=== PATIENT | female | born 1950 | race Two or more races ===

== ENCOUNTER 2016-08-21 14:45 | Observation (INO) | payer MEDICARE, MEDICAID ==
[2016-08-21] MEDS: NS 0.9% 1000 ML* 2,000 ML IV ONE ×2 (15:19→16:51)
[2016-08-21 15:20] LABS: Hematocrit 38 % (35-47); Hemoglobin 12.6 g/dl (12.0-16.0); Mean Corpuscular HGB Conc 33 g/dl (31-36); Mean Corpuscular Hemoglobin 32 pg (27-31); Mean Corpuscular Volume 96 fL (80-97); Mean Platelet Volume 9 um3 (7.4-10.4); Red Blood Count 3.99 10^6/ul (4.0-5.4); Red Cell Distribution Width 14 % (10.5-15); White Blood Count 7.4 10^3/ul (3.5-10.8)
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
[2016-08-21 15:37] LABS: Albumin 4.3 g/dL (3.2-5.2); BUN/Creatinine Ratio 12.6 (8-20); Calcium 9.8 mg/dL (8.6-10.3); Globulin 3.6 g/dL (2-4); HDL Cholesterol 49.6 mg/dL; Potassium 3.9 mmol/L (3.5-5.0); Total Bilirubin 0.6 mg/dL (0.2-1.0); Total Protein 7.9 g/dL (6.4-8.9)
[2016-08-21] MEDS ORDERED: Iodixanol* (CONTRAST) 320 MG/ML 100 ML SDV IV ONE (15:52)
--- NOTE | 2016-08-21 17:17 | RAD ---
INDICATION: Left-sided weakness. CVA. COMPARISON: None TECHNIQUE: Noncontrast axial source images were acquired from the skull base to the vertex. FINDINGS: Ventricles/sulci: The ventricles and cisterns are normal in size and configuration for age. Brain parenchyma: There is no focal parenchymal finding, evidence of intracranial mass, or intracranial mass effect. Intracranial hemorrhage:None. Extra-axial spaces: There are no abnormal extra axial fluid collections or evidence of extra-axial mass. Calvarium: There is no calvarial fracture or other calvarial abnormality. Scalp: There is no evidence of scalp or extracalvarial soft tissue abnormality. Paranasal sinuses/mastoid: The paranasal sinuses and mastoid air cells are clear. Other: None. IMPRESSION: NEGATIVE EXAMINATION
--- NOTE | 2016-08-21 17:31 | RAD ---
INDICATION: Carotid stenosis COMPARISON: None TECHNIQUE: Axial source images were acquired with coronal and sagittal reconstructions. CT angiographic technique was utilized with injection of 80 mL Visipaque 320. FINDINGS: Aortic arch: There are no CT angiogram abnormalities of the arch or the great vessels arising from the arch. Right carotid: The internal carotid artery, carotid bifurcation, extracranial portions of the internal carotid artery, carotid artery at the skull base, carotid siphon, and carotid termination appear normal. Left carotid:The internal carotid artery, carotid bifurcation, extracranial portions of the internal carotid artery, carotid artery at the skull base, carotid siphon, and carotid termination appear normal. Right middle and anterior cerebral arteries: There are no CT angiographic abnormalities of the middle or anterior cerebral arteries. Left middle and anterior cerebral arteries: There are no CT angiographic abnormalities of the middle or anterior cerebral arteries Right vertebral: The CT angiographic appearance of the vertebral artery is normal. Left vertebral: The CT angiographic appearance of the vertebral artery is normal. Basilar artery: The basilar artery and basilar tip appear normal. Posterior cerebral arteries: The distal distribution of the right and left posterior cerebral arteries is normal. [place]: The CT angiographic appearance of the [place] is normal. There is an anatomic variant with aplasia of the posterior to indicating arteries bilaterally Source images show no evidence of mass or adenopathy within the neck. There are moderate osteophyte changes between C3 and C6 There are no focal parenchymal abnormalities or abnormal areas of enhancement. IMPRESSION: NO SIGNIFICANT CT ANGIOGRAPHIC ABNORMALITIES. NO EVIDENCE OF RIGHT OCCLUSION, STENOSIS, OR ANEURYSM., CPT II Codes: 3100F RS
[2016-08-21] MEDS ORDERED: Nicotine Inhaler* 10 MG AMP INH PRN (18:57)
[2016-08-21] MEDS ORDERED: NS 0.9% 1000 ML* 1,000 ML IV SCH (19:00)
--- NOTE | 2016-08-21 19:21 | RAD ---
INDICATION: Left-sided weakness for 2 weeks COMPARISON: CT brain same date TECHNIQUE: sagittal T1 FLAIR, axial diffusion, axial T1 FLAIR, axial T2, axial T2 FLAIR, and SWI images were acquired. FINDINGS: Craniocervical junction: The craniocervical junction appears normal. Ventricles/sulci: The ventricles and cisterns are normal in size and configuration for age. Brain parenchyma: There are scant T2-weighted hyperintensities in the periventricular white matter. There are no other focal parenchymal abnormalities. There is no evidence of intracranial mass or mass effect. The diffusion weighted images show no evidence of acute ischemia. Intracranial hemorrhage: There is no intracranial hemorrhage. Extra-axial spaces: There are no extra-axial fluid collections or masses. Orbits: There are no MR abnormalities of the orbital structures. Paranasal sinuses/mastoid: The paranasal sinuses are clear. The mastoid air cells are well aerated.. Vascular: No abnormalities are seen. Other: None IMPRESSION: SCANT T2-WEIGHTED HYPERINTENSITIES SUGGESTIVE OF MILD CHRONIC MICROVASCULAR ISCHEMIC CHANGES. NO ACUTE FINDINGS
[2016-08-21] MEDS ORDERED: traMADol TAB* 50 MG PO PRN (19:40)
[2016-08-21] MEDS ORDERED: Aspirin EC TAB* 325 MG PO ONE (20:06)
[2016-08-21] MEDS ORDERED: Mouth Piece, Nicotine* 1 EACH CARTRIDGE INH ONE (20:45)
[2016-08-21] MEDS ORDERED: Amitriptyline TAB* 50 MG PO SCH (21:00)
[2016-08-21] MEDS: Heparin VIAL(*) 5000 UNITS/ML VIAL (FIVE THOUSAND) SUBCUT SCH (22:27)
--- NOTE | 2016-08-21 22:47 | HP ---
HISTORY AND PHYSICAL: DATE OF ADMISSION: 08/21/16 PRIMARY CARE PROVIDER: Dr. Tha Lynch. ATTENDING PHYSICIAN: Luke Smith MD *(dictated by Renetta Zuleta NP ). CHIEF COMPLAINT: Left-sided weakness for 2 weeks. HISTORY OF PRESENT ILLNESS: Ms. Connolly is a 66-year-old female with a past medical history significant for hyperlipidemia, orthostatic hypotension, shingles and fibromyalgia who presented to the emergency room today with complaints of 2 weeks of left-sided weakness. The patient reports that over the last 2 weeks, she has noticed weakness in her left arm and leg. The patient states that she woke up one morning and was unable to walk. She is right hand dominant. She denies any difficulty swallowing, slurred speech or changes in her facial symmetry. The patient has been able to walk around her house with the use of a cane. She states prior to 2 weeks ago, she was not using a cane. The patient also reports frequent falls over the last 2 weeks, but denies any head injuries. The patient denies any fever, chills, chest discomfort, shortness of breath, nausea, vomiting, urinary symptoms, loss of bowel or bladder, numbness or tingling, back pain or neck pain. The patient does report dizziness that started 2 weeks ago when her left-sided weakness started. She states that she has had dizziness in the past and takes meclizine for this, but she feels that this dizziness is different. The patient saw her primary care provider, who recommended that she present to the emergency room for further evaluation. While in the emergency room, the patient had labs that were significant for an elevated creatinine of 1.27. The patient had a lipid panel that showed elevated cholesterol and an LDL, although these were not done fasting. The patient's CBC was unremarkable. The patient received a liter of normal saline while in the ER. She also had a brain CT showing no acute intracranial findings. She had a CTA of her head and neck that also showed no significant abnormalities. There were no signs of right occlusion, stenosis, or aneurysm. The patient also had an MRI of her brain showing scant T2-weighted hyperintensity suggestive of mild chronic microvascular ischemic changes. There were no acute findings. The patient had an EKG showing a sinus rhythm with a rate of 71. This EKG is similar to previous EKG from 01/08/2014. It is to note that at that time, the patient was in sinus tachycardia. The patient does have a new T-wave flattening in V2 to V6. Based off the patient's presentation, Hospitalists were asked to evaluate the patient for admission. PAST MEDICAL HISTORY: 1. Hyperlipidemia. 2. Herpes zoster. 3. Orthostatic hypotension. 4. Fibromyalgia. 5. BPV. There was corrected with an Favio maneuver. 6. Tobacco abuse. 7. According to the patient's old records, she has a history of hypothyroidism and peptic ulcer disease. The patient denies this. PAST SURGICAL HISTORY: 1. Status post laminectomy in 2010. 2. Status post appendectomy in 1961. 3. Status post tubal ligation in 1970. HOME MEDICATIONS: Include: 1. Omeprazole 20 mg oral daily. 2. Amitriptyline 150 mg oral daily at bedtime. 3. Tramadol 50 to 100 mg oral every 6 hours as needed for pain. 4. Meclizine, the patient is unsure of the dose. ALLERGIES: No known allergies. FAMILY HISTORY: The patient reports that her father passed in his 70s from coronary artery disease. The patient denies any family history of diabetes mellitus or cancer. SOCIAL HISTORY: The patient is a current smoker, smoking approximately half a pack a day. She has smoked for approximately the last 27 years. The patient denies alcohol or recreational drug use. She is disabled and lives with her adult son. Her son, Ruben Connolly, will be her surrogate decision maker in the event she is unable to make decisions for herself. REVIEW OF SYSTEMS: I performed a 14-point review of systems. All the pertinent positives and negatives are mentioned in the history of present illness. Remaining review of systems are negative. PHYSICAL EXAMINATION GENERAL APPEARANCE: The patient is alert, pleasant, appears to be in no acute distress. VITAL SIGNS: Temperature 97.3, heart rate 71, respiratory rate 14, O2 sat 99% on room air, blood pressure 145/101. HEENT: Normocephalic, atraumatic. Pupils are equal and reactive to light. Extraocular movements are intact. NECK: Supple. There is no lymphadenopathy noted. Nontender, able to perform full range of motion. RESPIRATORY: There is no accessory muscle use. Lungs are clear to auscultation bilaterally. CARDIOVASCULAR: Regular rate and rhythm. S1 and S2 are present. There are no murmurs, rubs or gallops heard. ABDOMEN: Soft, nontender, nondistended. There are bowel sounds present x4. EXTREMITIES: There is no lower extremity edema. DP and PT pulses are 2+ and symmetric. MUSCULOSKELETAL: There is no clubbing or cyanosis noted. The patient exhibits good strength on her right side. For her upper extremities, the patient's hand dental technician metal are fairly equal (slight weakness on the left) and with a slightly weak triceps on the left side. For lower extremities, the patient has good strength , although she does have slight drift when holding her left leg up, but the leg does not touch the bed. The patient is able to do finger to nose without difficulty bilateral. She may be slightly ataxic on the left side. The patient is able to do heel from ankle to knee without difficulty bilaterally, although she is a little bit slower with this movement on the left side. The patient is able to ambulate and has a slow slightly unsteady gait. Back is nontender. NEUROLOGIC: The patient is alert and oriented x4. Cranial nerves II through XII are grossly intact. The patient's smile is symmetric and her tongue is midline. PSYCHOLOGICAL: The patient is calm and cooperative. SKIN: There are no rashes or abnormalities seen. DIAGNOSTIC STUDIES/LABORATORY DATA: Sodium 134, potassium 3.9, chloride 100, CO2 29, BUN 16, creatinine 1.26, glucose 96. White blood cell count 7.4, hemoglobin 12.6, hematocrit 38, and platelet count 210. EKG shows a sinus rhythm with a rate of 71. There is new T-wave flattening in leads V2 to V6 when compared to previous EKG from 01/08/14. It is to note that in that EKG, the patient was in a sinus tachycardia. 1. Brain CT from today. Radiologist's impression: Negative exam. 2. Head CTA. No significant CT angiographic abnormalities. No evidence of right occlusion, stenosis, or aneurysm. 3. Brain MRI from today. Radiologist's impression: Scant T2-weighted hyperintensity suggestive of mild chronic microvascular ischemic changes. No acute findings. IMPRESSION: Ms. Connolly is a 66-year-old female with past medical history significant for hyperlipidemia, not currently on medications, shingles, orthostatic hypotension, benign positional vertigo, and fibromyalgia, who presents to the emergency room with complaints of 2 weeks of left-sided weakness. She will be admitted as an observation for rule out cerebrovascular accident. ASSESSMENT: 1. Left-sided weakness. Rule out cerebrovascular accident versus transient ischemic attack. The patient will be monitored on telemetry. At this point, her workup is negative in her MRI, CT of her brain and head CTA. She will have neurological checks q.4 hours. She is complaining of some dizziness, we will get orthostatic vital signs. We will add on a hemoglobin A1c to her labs. She does have elevated lipids, but these were not done fasting. We will get fasting lipid panel in the morning. We will also get an echocardiogram. Neurology will consult on the patient in the morning. Due to the patient's negative findings thus far, we will get a MRI of the patient's cervical spine and thoracic spine. The patient was given aspirin this evening. 2. Acute kidney injury. The patient's creatinine is slightly elevated. She reports not drinking as much over the last few days as she normal does. I suspect this is prerenal. She will get IV hydration and we will recheck her labs in the morning. 3. Fluids, electrolytes, nutrition. The patient will be on a regular heart healthy diet. 4. Code status. Full code. 5. DVT prophylaxis. The patient is at high risk and will have subcu heparin. DISPOSITION: Observation. TIME SPENT: The time for this admission was 60 minutes, 35 minutes were spent [id number] with the patient discussing medications, past medical history and the events leading up to her arrival today and performing a physical examination. The case has been reviewed with the attending, Dr. Smith, who agrees with the plan of care. Reviewed by KOKI PURVIS 08/22/16 0901 CC: Dr. Tha Lynch * [id number]/[facility] #: [id number] ADRIANA
[2016-08-21 23:18] LABS: Urine Bilirubin Negative (Negative); Urine Glucose Negative (Negative); Urine Nitrite Negative (Negative)
[2016-08-21 23:20] LABS: Urine Bacteria Absent (Absent)
[2016-08-22] MEDS: Heparin VIAL(*) 5000 UNITS/ML VIAL (FIVE THOUSAND) SUBCUT SCH ×2 (06:25→14:31)
[2016-08-22 06:46] LABS: BUN/Creatinine Ratio 10.9 (8-20); Calcium 8.5 mg/dL (8.6-10.3); EGFR African American 63.7 (>60); EGFR Non-African American 49.5 (>60); HDL Cholesterol 41.5 mg/dL; Potassium 3.5 mmol/L (3.5-5.0)
--- NOTE | 2016-08-22 07:43 | RAD ---
HISTORY: Left-sided weakness COMPARISONS: None TECHNIQUE: The following sequences were obtained of the cervical spine: Sagittal T1- and T2-weighted images, sagittal STIR images, axial T2 and gradient echo images. FINDINGS: BRAIN AND SPINAL CORD: The visualized spinal cord is normal in caliber, position, and signal intensity. The visualized portion of the brain is unremarkable. The cerebellar tonsils are normal in position. ALIGNMENT: There is straightening of the cervical lordosis. There is trace anterolisthesis of C3 on C4. VERTEBRAL BODIES: There is multilevel anterolateral marginal osteophyte formation. JOINTS: There is uncovertebral and facet osteoarthritic change diffusely. There is osteoarthritis of the atlantoaxial articulation. MUSCULATURE: Unremarkable INTERVERTEBRAL DISCS: There is diffuse loss of intervertebral disc height and T2 signal throughout the spine. AXIAL IMAGES: C2-C3: There is bilateral vertebral and facet hypertrophy. There is severe left and moderate right neural foraminal narrowing. There is no significant central canal stenosis. C3-C4: There is bilateral uncovertebral facet hypertrophy. There is severe right and moderate to severe left neural foraminal narrowing. There is mild narrowing of the central canal. C4-C5: There is bilateral uncovertebral and facet hypertrophy. There is severe bilateral neural foraminal narrowing. There is mild narrowing of the central canal. C5-C6: There is bilateral uncovertebral and facet hypertrophy. There is severe bilateral neural foraminal narrowing. There is mild narrowing of the central out. C6-C7: There is bilateral facet hypertrophy. There is mild bilateral neural foraminal narrowing. There is no significant central canal stenosis. C7-T1: There is no disc herniation, spinal stenosis, or neuroforaminal narrowing. SOFT TISSUES: The visualized soft tissues of the neck are unremarkable. OTHER: None. IMPRESSION: 1. DEGENERATIVE DISC DISEASE AND OSTEOARTHRITIS. 2. THERE IS MILD NARROWING OF THE CENTRAL CANAL AT C3-C4, C4-C5 AND C5-C6. 3. THERE IS MULTILEVEL NEURAL FORAMINAL NARROWING DESCRIBED ABOVE.
--- NOTE | 2016-08-22 07:46 | RAD ---
HISTORY: Left-sided weakness COMPARISONS: None TECHNIQUE: The following sequences were obtained of the thoracic spine: Sagittal T1 and T2-weighted images, sagittal STIR images, coronal T2-weighted images, and axial T2-weighted images. . FINDINGS: Localization is based on counting from C2 SPINAL CORD, CONUS, AND CAUDA EQUINA: The visualized spinal cord, conus, and cauda equina are normal in caliber, position, and signal intensity. ALIGNMENT: The alignment is normal. VERTEBRAL BODIES: There are minimal Modic type I reactive end the changes along the lower thoracic spine. There is mild anterolateral marginal osteophyte formation. JOINTS: There is mild osteoarthritis of the costovertebral articulations. MUSCULATURE: Unremarkable INTERVERTEBRAL DISCS: There is diffuse loss of intervertebral disc height and T2 signal throughout the spine. AXIAL IMAGES: There is no central canal stenosis or neuroforaminal narrowing. SOFT TISSUES: The visualized soft tissues of the chest and upper abdomen are unremarkable. OTHER: None. IMPRESSION: MILD DEGENERATIVE CHANGES OF THE THORACIC SPINE WITHOUT SIGNIFICANT NEURAL FORAMINAL NARROWING OR CENTRAL CANAL STENOSIS.
[2016-08-22] MEDS ORDERED: Omeprazole CAP* 20 MG PO SCH (09:00)
[2016-08-22] MEDS ORDERED: Influenza VAC *QUAD* 2016-17* 0.5 ML SYRINGE IM ONE (09:00)
--- NOTE | 2016-08-22 12:39 | PN ---
Subjective Date of Service: 08/22/16 Interval History: Patient seen and examined at bedside. Pt reports that the left sided weakness has improved, she was able to ambulate in the villegas with PT with a cane and a steady gait. She reports being "shaky and off balance" when she first got up, but was able to get her "bearings" and walk without difficulty. Denies fever, chills, shortness of breath, chest discomfort, N/V/D. Pt states that she only has dizziness when she first gets up. Again Pt denies neck or back pain or hitting her head when she has fallen over the past 2 weeks. Tele: Sinus rhythm, rate 70's. No arrhythmias noted on tele. Family History: Unchanged from Admission Social History: Unchanged from Admission Past Medical History: Unchanged from Admission Objective Active Medications: Amitriptyline HCl (Elavil Tab*) 150 mg PO BEDTIME NATHEN Heparin Sodium (Porcine) (Heparin Vial(*)) 5,000 units SUBCUT Q8HR NATHEN Nicotine (Nicotine Inhaler*) 10 mg INH Q2H PRN Reason: CRAVING Omeprazole (Prilosec Cap*) 20 mg PO DAILY NATHEN Tramadol HCl (Ultram*) 50 mg PO Q6H PRN Reason: PAIN Vital Signs 08/21/16 08/21/16 08/22/16 18:30 19:50 00:07 Temperature 97.6 F 97.3 F Pulse Rate 70 78 74 Respiratory 16 16 16 Rate Blood Pressure 149/94 108/74 113/73 (mmHg) O2 Sat by Pulse 99 98 96 Oximetry 08/22/16 08/22/16 08/22/16 04:49 04:50 04:51 Temperature 97.7 F 97.7 F 97.8 F Pulse Rate 86 87 85 Respiratory 20 20 20 Rate Blood Pressure 135/82 129/83 136/91 (mmHg) O2 Sat by Pulse 96 99 95 Oximetry 08/22/16 07:29 Temperature 98.3 F Pulse Rate 76 Respiratory 16 Rate Blood Pressure 116/72 (mmHg) O2 Sat by Pulse 96 Oximetry Oxygen Devices in Use Now: None Appearance: NAD, sitting up on the side of the bed Eyes: No Scleral Icterus, PERRLA Ears/Nose/Mouth/Throat: NL Teeth, Lips, Gums, Mucous Membranes Moist Neck: NL Appearance and Movements; NL JVP, Trachea Midline Respiratory: Symmetrical Chest Expansion and Respiratory Effort, Clear to Auscultation Cardiovascular: NL Sounds; No Murmurs; No JVD, RRR Abdominal: NL Sounds; No Tenderness; No Distention Extremities: No Edema Skin: No Rash or Ulcers Neurological: Alert and Oriented x 3, NL Muscle Strength and Tone Lines/Tubes/Other Access: Clean, Dry and Intact Peripheral IV - site benign Nutrition: Taking PO's Result Diagrams: 08/21/16 15:05 08/22/16 05:38 Additional Lab and Data: Assess/Plan/Problems-Billing Assessment: Ms. Connolly is a 66 yo female with PMH significant for HLD not currently on medication, shingles, orthostatic hypotension, BPV, and fibromyalgia who presented to the emergency room with complaints of 2 weeks of left-sided weakness. - Patient Problems (1) Left-sided weakness Code(s): M62.81 - MUSCLE WEAKNESS (GENERALIZED) SNOMED Code(s): 499323365 Comment: - Improved today - CT, CTA and MRIs all negative - MRI cervical spine shows mild central canal narrowing at C3-4, C4-5, C5-6 and multilevel neural forminal narrowing. - ECHO pending - Neuro consult pending (2) TETE (acute kidney injury) Code(s): N17.9 - ACUTE KIDNEY FAILURE, UNSPECIFIED SNOMED Code(s): 73035761 Comment: - Improving after IVFs - Suspect this is prerenal (3) DVT prophylaxis Code(s): HGE5680 - SNOMED Code(s): 830184736 Comment: - SQ heparin (4) Full code status Code(s): Z78.9 - OTHER SPECIFIED HEALTH STATUS SNOMED Code(s): 544307887 Status and Disposition: OBV. Discharge to home when medically stable, possibly later today.
--- NOTE | 2016-08-22 14:30 | ECHO ---
Patient: KARMA RUANO [facility] Rec#: [id number] : 1950 Date: 08/22/2016 Age: 66y Height: 160 cm / 63.0 in Weight: 73 kg / 160.9 lbs Sex: F BSA: 1.76 Room#: [facility] Admit Date#: 08/21/2016 Type: Inpatient Referring: Renetta Arzola NP Reading: Prashant Cisneros DO Customer Servicer: Gibran Muñiz RDCS Transthoracic Echocardiogram Indication: SYNCOPE BP: 136/91 HR: 86 Rhythm: NSR Findings History: HLD,Hypothyroidism,dyslipidemia,vertigo,smoker Technical Comments: The study quality is fair. Left Ventricle: The left ventricular chamber size is normal. There is no left ventricular hypertrophy. There is mildly decreased left ventricular systolic function.with no segmental wall motion abnormalities noted. The estimated ejection fraction is 45-50%. Normal left atrial size makes clinically significant diastolic dysfunction unlikely Left Atrium: The left atrial chamber size is normal. Right Ventricle: The right ventricular chamber size and systolic function are within normal limits. Right Atrium: The right atrial cavity size is normal. The bubble study is negative.Image 73 Aortic Valve: The aortic valve is trileaflet. There is no evidence of aortic regurgitation. There is no evidence of aortic stenosis. Mitral Valve: The mitral valve leaflets appear normal. There is mild mitral regurgitation. There is no evidence of mitral stenosis. Tricuspid Valve: The tricuspid valve appears normal in structure and function. There is no evidence of tricuspid valve regurgitation. No pulmonary hypertension is noted. Pulmonic Valve: The pulmonic valve appears normal. There is a trace pulmonic regurgitation. There is no pulmonic stenosis. Pericardium: There is no significant pericardial effusion. Aorta: There is no dilatation of the ascending aorta. There is no dilation of the aortic root. Pulmonary Artery: The main pulmonary artery is not well visualized. Venous: The inferior vena cava appears normal in size. There is a greater than 50% respiratory change in the inferior vena cava dimension. Contrast: Intravenous agitated saline contrast was used to assess intracardiac shunting. Conclusions The left ventricular chamber size is normal. There is no left ventricular hypertrophy. There is mildly decreased left ventricular systolic function with no segmental wall motion abnormalities noted. The estimated ejection fraction is 45-50%. Normal left atrial size The right ventricular chamber size and systolic function are within normal limits. No significant valvular abnormalities noted The bubble study is negative. There is mild mitral regurgitation. Compared to prior study from 09/2013, the LVEF is now mildly reduced at 45-50% (was 60-65% previously) Measurements Name Value Normal Range RVIDd (AP) 2D 2.2 cm (0.9 - 2.6) RVDdMajor (2D) 2 cm (2.2 - 4.4) RAd ISD 4CH 4.2 cm (3.4 - 4.9) RA (A4C)W 2.8 cm (2.9 - 4.6) IVSd (2D) 0.8 cm (0.6 - 1) LVPWd (2D) 0.8 cm (0.6 - 1) LVIDd (2D) 4.8 cm (3.6 - 5.4) LVIDs (2D) 4.1 cm - LV FS (2D) 15 % (25 - 45) Aortic Annulus 1.5 cm (1.4 - 2.6) Ao root diameter (2D) 2.9 cm (2.1 - 3.5) Ascending Ao 1.9 cm (2.1 - 3.4) Aortic arch 2.3 cm (1.8 - 3.4) LA dimension (AP) 2D 3.4 cm (2.3 - 3.8) LAd ISD 4CH 4.4 cm (2.9 - 5.3) LA ISD 4CH W 2.5 cm (2.5 - 4.5) Name Value Normal Range LA ESV SP 4CH (A/L) 16 ml - LA ESV SP 2CH (A/L) 27 ml - LA ESV BP (A/L) 22 ml - LA ESV BP (A/L) index 12.51 ml/m2 - LA ESV SP 4CH (MOD) 16 ml - LA ESV SP 2CH (MOD) 25 ml - Name Value Normal Range MV E-wave Vmax 0.32 m/sec - MV deceleration time 103 msec - MV A-wave Vmax 0.61 m/sec - MV E:A ratio 0.52 ratio - LV septal e' Vmax 0.04 m/sec - LV lateral e' Vmax 0.04 m/sec - Name Value Normal Range LVOT diameter 2.1 cm - LVOT Vmax 0.6 m/sec - Name Value Normal Range IVC diameter 1.75 cm - Name Value Normal Range PV Vmax 0.63 m/sec -
[2016-08-22 17:35] VITALS: BP 121/84
--- NOTE | 2016-08-22 21:27 | CONS ---
NEUROLOGY CONSULTATION: DATE OF CONSULT: 08/22/16 PRIMARY CARE PHYSICIAN: Dr. Lynch. REFERRING PROVIDER: Renetta Coates NP LOCATION: The patient is an inpatient. REASON FOR CONSULT: Left leg weakness. HISTORY OF PRESENT ILLNESS: Crystal Connolly is a 66-year-old woman with a history of orthostatic hypotension, hyperlipidemia that is not currently treated and reported history of Shingles 2 years ago, and fibromyalgia who presented to the emergency room with approximately 2 weeks of left-sided weakness. The patient is a vague informant. Apparently, approximately 2 weeks ago, she noticed some difficulty walking and she describes this as her left leg shaking when she would walk. She began walking with a cane and when asked about upper extremity weakness, she mentions that her right arm would tremble when she was holding the cane and sometimes her left arm would tremble as well but it is not clear that she was ever weak in her left upper extremity. She denies any numbness or tingling associated with this. She denies back pain. She denies any facial weakness, dysarthria, aphagia, vision changes. She has had a history of vertigo/dizziness, but this has not changed either. When asked about falls, she apparently reported frequent falls to the admitting provider yesterday, but to me she described a single fall in the summer time that was related to her blacking out and then a second fall more recently where she tripped over something. She has had an extensive workup since she has been here, which has included laboratory evaluation as well as multiple imaging studies including brain CT, head CT angiogram, brain MRI, and cervical and thoracic spine MRI. Today, after working with physical therapy, she reports that her left leg weakness is much improved and she was walking with a brisk pace with physical therapy. I was asked to evaluate due to this left-sided weakness. PAST MEDICAL HISTORY: 1. Hyperlipidemia, the patient reports she was previously treated with Lipitor , but has been off of that for 6 months for reasons that are unclear. She reports the pharmacy just has not been giving her the medication. 2. Herpes zoster on the upper back 2 years ago. 3. Reported history of orthostatic hypotension. 4. Fibromyalgia. 5. BPPV. 6. Tobacco abuse. PAST SURGICAL HISTORY: 1. Status post laminectomy in 2010. 2. Status post appendectomy in 1961. 3. Status post tubal ligation in 1970. HOME MEDICATIONS: 1. Amitriptyline 150 mg at bedtime for insomnia. 2. Omeprazole 20 mg daily. 3. Tramadol 50 to 100 mg every 6 hours as needed for pain. 4. Meclizine as needed. ALLERGIES: No known drug allergies. FAMILY HISTORY: There is a history of diabetes as well as stroke. Specifically , the patient's mother had a stroke. SOCIAL HISTORY: The patient has 3 biological children and 2 younger children whom she adopted through foster care. Her youngest daughter is 12 years old. She does not drive and smokes less than half a pack of cigarettes per day indicating that she is trying to quit. REVIEW OF SYSTEMS: Negative aside from the HPI. PHYSICAL EXAM: Vital Signs: Temperature 98.3, blood pressure 116/72, heart rate 76, and oxygen saturation 96% on room air. She had orthostatic vital signs done at 10:05 this morning, which showed supine blood pressure to be 135/ 82 with a heart rate of 86, sitting blood pressure 136/91 with a heart rate of 82 and a standing blood pressure of 129/83 with a heart rate of 87. On general exam, she was initially asleep, but awoke easily to voice. She is in no acute distress. Heart reveals a regular rate and rhythm with no murmurs, rubs or gallops. Lungs are clear to auscultation bilaterally. There are no carotid bruits. She has a few healing sores on her feet and calluses on her feet. On neurologic examination, she is a vague informant. She is fully awake, alert , and oriented. Her speech is fluent without dysarthria or aphasia. On cranial nerve testing, pupils are equal, round and reactive from 3 to 2 mm bilaterally. Funduscopic exam shows some silver wiring. Versions are full without nystagmus. Visual hernandez are full to confrontation. Facial sensation and musculature full and symmetric. Hearing is intact to finger rub. The palate elevates symmetrically and the tongue is midline. On motor examination, there is normal bulk and tone in the upper and lower extremities. Strength is full both proximally and distally in the upper and lower extremities. On sensory testing, sensation is intact to light touch in the upper and lower extremities. Vibration is diminished in the great toes to 8 seconds in the left and 12 seconds on the right. Reflexes were 2+ in the upper extremities, 2+ at the knees and difficult to elicit in the ankle because the patient had difficulty relaxing her feet, but with distraction maneuvers, they were 1+ bilaterally. Toes were downgoing. On [id number]-[id number] testing, there is no ataxia. Romberg is slightly wobbly, but she does not fall. She is walking with a cane in her right hand and her gait is slightly wide based, but steady. DIAGNOSTIC STUDIES/LAB DATA: Laboratory data reviewed, includes a CBC, which was largely unremarkable aside from a slightly low red count of 3.99 and MCH of 32. CMP showed an initial creatinine of 1.27 which has improved to 1.1 today. Hemoglobin A1c is 6.3. Fasting lipid profile shows triglycerides of 185, total cholesterol is 376, LDL of 298, and HDL of 41.5. Urinalysis was negative for infection or glucose. Brain MRI was personally reviewed and showed some scant T2/FLAIR hyperintensities in the cerebral white matter. Thoracic spine MRI was personally reviewed and was an essentially unremarkable study. Cervical spine MRI was personally reviewed and showed multilevel neuroforaminal narrowing on both the right and left from the C2 through C6 levels which in many cases is between moderate and severe in severity. There is mild narrowing of the canal, but no intramedullary signal changes. There is also degenerative disk disease and osteoarthritis. IMPRESSION: Crystal Connolly is a 66-year-old woman who presented with difficulty walking and reports of left-sided weakness of approximately 2 weeks' duration. I do not detect any weakness on her examination today. Extensive neuro imaging does not reveal an etiology for her reported difficulty walking. I note that she has multiple abnormalities noted on her cervical spine MRI due to a degenerative joint and disk disease, but she has no symptoms referable to that such as neck pain or radicular pain or weakness in the upper extremities. Therefore, I think those findings are all incidental. She does have some mild vibratory sensation loss in the feet which is probably due to neuropathy which could impact her balance. This may be related to glucose intolerance/mild diabetes as her A1c is elevated. As an outpatient, she may benefit from a course of physical therapy, but says that she would have difficulty getting to and from since she does not drive. The Hospitalist is going to look into whether she might qualify for home therapy services as an outpatient as well, she needs dietary counseling and smoking cessation. Separately, she has hyperlipidemia which is not currently being treated as she says that her pharmacy stopped giving her the medication. I clarified that she used to take Lipitor and had no concrete reasons for stopping the medication. So, I spoke with Renetta from the Hospitalist and we will send her with a prescription for 40 mg Lipitor to restart that. Thank you for this consultation. CC: Dr. Lynch* [id number]/[facility] #: [id number] ADRIANA
--- NOTE | 2016-08-23 12:02 | DS ---
DISCHARGE SUMMARY: DATE OF ADMISSION: 08/21/16 DATE OF DISCHARGE: 08/22/16 ATTENDING PHYSICIAN: Dr. Tarun Hoffman* (dictated by Renetta Zuleta NP). PRIMARY CARE PROVIDER: Dr. Tha Lynch. PRIMARY DIAGNOSES: 1. Left-sided weakness, resolved. 2. Hyperlipidemia. 3. Acute kidney injury. SECONDARY DIAGNOSES: 1. Orthostatic hypotension. 2. Fibromyalgia. CONSULTATIONS WHILE IN THE HOSPITAL: Dr. Caryn Willis with Neurology. STUDIES WHILE IN THE HOSPITAL: 1. Brain CT on 08/21/16. Radiologist's impression: Negative examination. 2. Head CTA on 08/21/16. Radiologist's impression: No significant CT angiographic abnormalities. No evidence of right occlusion, stenosis or aneurysm. 3. Brain MRI on 08/21/16. Radiologist's impression: Scant T2 weighted hyperintensities suggestive of mild chronic microvascular ischemic changes. No acute findings. 4. Cervical spine MRI on 08/21/16. Radiologist's impression: Degenerative disk disease and osteoarthritis. There is mild narrowing of the central canal at C3-C4, C4-C5 and C5-C6. There is a multilevel neuroforaminal narrowing as described in the body of the report. 5. Thoracic spine MRI on 08/21/16. Radiologist's impression: Mild degenerative changes of the thoracic spine without significant neuroforaminal narrowing or central canal stenosis. 6. Transthoracic echocardiogram on 08/22/16. Registered Dental Hygienist's conclusion: The left ventricular chamber size is normal. There is no left ventricular hypertrophy. There is mildly decreased left ventricular systolic function with no segmental wall motion abnormalities noted. The estimated ejection fraction is 45% to 50%. Normal left atrial size. The right ventricular chamber size and systolic function are within normal limits. No significant alveolar abnormalities noted. The bubble study is negative. There is mild mitral regurgitation. Compared to prior study from 09/22/13, the LVEF is now mildly reduced at 45% to 50% (was 60% to 65% previously). DISCHARGE MEDICATIONS: New home medications: 1. Atorvastatin 40 mg oral every evening. Continued home medications: 1. Amitriptyline 150 mg oral daily at bedtime. 2. Omeprazole 20 mg oral daily. 3. Tramadol one to two tablets oral every 6 hours as needed for pain. HISTORY OF PRESENT ILLNESS/HOSPITAL COURSE: Ms. Connolly is a 66-year-old female with past medical history significant for hyperlipidemia, orthostatic hypotension, herpes zoster and fibromyalgia, who presented to the emergency room with complaints of 2 weeks of left-sided weakness. The patient reported that over the last 2 weeks, she noticed a weakness in her left arm and leg. The patient states that she just woke up one morning and was unable to ambulate. She started to use a cane to get around her home. The patient denied any difficulty swallowing, slurred speech or changes in her facial symmetry. The patient noted that she did have increased falls at home. She denies any injuries with any of her falls. The patient initially presented to her primary care provider for evaluation, who recommended that she present to the emergency room for further evaluation of her symptoms. While in the emergency room, the patient had labs that were significant for an elevated creatinine of 1.27. The patient also had a lipid panel that was nonfasting showing elevated cholesterol and LDL. The patient had a CBC that was unremarkable. She received a liter of normal saline while in the emergency room. She had a brain CT showing no acute findings. She also had a CTA of her head and neck in addition to MRI of her head showing no significant findings. The patient's neuro examination was essentially normal with the exception of slight weakness noted in the left upper extremity and left lower extremity. The patient had an EKG showing sinus rhythm that was similar to previous EKG from 01/08/14. There was some new T-wave flatting in leads V2 to V6. Based off the patient's presentation, the hospitalists were asked to evaluate the patient for admission. While in the hospital, the patient had MRI imaging of her cervical and thoracic spine showing no significant findings in the thoracic spine with the exception of some mild degenerative changes. The patient's cervical spine MRI showed degenerative disk disease and osteoarthritis, some mild narrowing of the central canal at C3-C4, C4-C5, and C5-C6. There is multilevel neuroforaminal narrowing as described by the radiologist. The patient denied any back or neck pain. She was monitored on telemetry overnight and was found to have no arrhythmias. The patient underwent a transthoracic echocardiogram with no significant findings. The patient had a negative bubble study. The patient's weakness essentially resolved overnight. The patient was seen in consultation by physical therapy and did well. The patient had fasting lipid panel drawn this morning showing a cholesterol of 376 and an LDL of 298. The patient's triglycerides were also elevated at 185. The patient presented with an acute kidney injury with a creatinine of 1.27. The patient's creatinine improved overnight after some gentle IV hydration to 1.10. The patient had a hemoglobin A1c checked and her hemoglobin A1c was 6.3. She was encouraged to make some dietary changes. The patient was able to ambulate with physical therapy and was felt to be safe to go home. She was seen in evaluation by Neurology who felt that some of the patient's balance issues could be related to neuropathy. There was no further neurological workup recommended. The patient had orthostatic vital signs and she was not found to be orthostatic. Ms. Connolly is stable for discharge to home today. Vital signs are as follows: Temperature 98.3, heart rate is 76, respiratory rate 16, O2 sat 96% on room air , blood pressure 116/72. DISCHARGE PLAN: Ms. Connolly will be discharged to home. ACTIVITY: As tolerated. DIET: She should be on a heart healthy diet. As far as her elevated hemoglobin A1c, I recommend she make some dietary changes to see if she could improve her glucose control. If she is unable to improve this, she may need to be started on medication. As far as the patient' s acute kidney injury, her creatinine did improve after IV fluids. I suspect this was prerenal in cause. As far as the patient's left-sided weakness, this has resolved during her stay. It does not appear that this was related to a TIA or cerebrovascular accident. The patient has some mild narrowing in her central canal of her cervical spine along with some multilevel neuroforaminal narrowing. At this time, she is not complaining of any neck pain. I would just continue to monitor this for now. The patient may benefit from outpatient physical therapy. I recommend following with her and assisting her in setting this up if she continues to have issues with her balance. The patient should be seen in followup by her primary care provider, Dr. Lynch. She has an appointment on September 01 at 2:20 p.m. As far as the patient's hyperlipidemia, she has been restarted on Lipitor. The patient has been asked to return to the emergency room for shortness of breath, chest discomfort or stroke symptoms such as facial drooping, one-sided weakness, or slurred speech. This is a summarized report of a complex medical history and hospital stay. For further details, please see the entire medical record. TIME SPENT: Time for this discharge was 50 minutes and 25 minutes was spent face- to-face with the patient discussing discharge plans and instructions. CONDITION ON DISCHARGE: Stable. Reviewed by KOKI PURVIS 08/25/16 1348 CC: Dr. Lynch* [id number]/CPS #: [id number]
--- NOTE | 2016-10-24 07:42 | ED ---
Hailey Abarac Anna, scribed for Luis Manuel Villanueva MD on 08/21/16 at 1743 . Progress - EKG/XRAY/CT EKG: NSR - 71 bpm, changed from - 01/08/2014 Comments: T-wave flattening in V2-V6, new since previous EKG 01/08/2014 Re-Evaluation - Re-Evaluation First Eval Re-Evaluation Time: 18:01 Change: Unchanged Comment: Discussed results and plan of care with patient. Patient and family are agreeable with plan. Course/Dx - Diagnoses Provider Diagnoses: CVA (cerebral vascular accident) - Provider Notifications Discussed Care Of Patient With: Dr. Benz (hospitalist) at 1805. Agrees to accept patient for admission. Discharge - Discharge Plan Condition: Stable Disposition: ADMITTED TO [facility] Referrals: Syed BAR,Tha Spears [Primary Care Provider] - Diagnostics - Vital Signs Vital Signs Temp Pulse Resp BP Pulse Ox 08/21/16 17:00 69 17 140/85 98 08/21/16 16:37 136/120 08/21/16 16:35 21 08/21/16 16:00 73 16 143/80 98 08/21/16 15:30 71 15 135/85 95 08/21/16 15:00 80 15 133/103 99 08/21/16 14:54 79 143/83 96 08/21/16 14:53 79 98 08/21/16 14:48 97.3 F 80 15 143/83 98 - Laboratory Lab Results: Lab Results 08/21/16 Range/Units 15:05 WBC 7.4 (3.5-10.8) 10^3/ul RBC 3.99 L (4.0-5.4) 10^6/ul Hgb 12.6 (12.0-16.0) g/dl Hct 38 (35-47) % MCV 96 (80-97) fL MCH 32 H (27-31) pg MCHC 33 (31-36) g/dl RDW 14 (10.5-15) % Plt Count 210 (150-450) 10^3/ul MPV 9 (7.4-10.4) um3 Neut % (Auto) 45.6 (38-83) % Lymph % (Auto) 44.2 (25-47) % [place] % (Auto) 5.6 (1-9) % Eos % (Auto) 3.5 (0-6) % Baso % (Auto) 1.1 (0-2) % Absolute Neuts (auto) 3.4 (1.5-7.7) 10^3/ul Absolute Lymphs (auto) 3.3 (1.0-4.8) 10^3/ul Absolute Monos (auto) 0.4 (0-0.8) 10^3/ul Absolute Eos (auto) 0.3 (0-0.6) 10^3/ul Absolute Basos (auto) 0.1 (0-0.2) 10^3/ul Absolute Nucleated RBC 0 10^3/ul Nucleated RBC % 0 Result Diagrams: 08/21/16 15:05 08/21/16 15:05 Lab Statement: Any lab studies that have been ordered have been reviewed, and results considered in the medical decision making process. - CT CTA Head/Neck CT Interpretation: No Acute Changes CT Interpretation Completed By: Radiologist - IMPRESSION: NO SIGNIFICANT CT ANGIOGRAPHIC ABNORMALITIES. NO EVIDENCE OF RIGHT OCCLUSION, STENOSIS, OR ANEURYSM., CT Brain CT Interpretation: No Acute Changes CT Interpretation Completed By: Radiologist The documentation as recorded by the Hailey ramires Anna accurately reflects the service I personally performed and the decisions made by , Luis Manuel Villanueva MD.
== END 2016-08-22 17:50 | disposition home or self-care (01) ==
LOC: ED 14:45 → MEDTELE 18:12
PROVIDERS: ADMIT Internal Medicine; ATTEND Hospitalist
DX: M62.81 Muscle weakness (generalized) (principal); N17.9 Acute kidney failure, unspecified; E78.5 Hyperlipidemia, unspecified; I95.1 Orthostatic hypotension; M79.7 Fibromyalgia; H81.10 Benign paroxysmal vertigo, unspecified ear; Z23 Encounter for immunization; R26.2 Difficulty in walking, not elsewhere classified; M50.31 Other cervical disc degeneration, high cervical region; I45.81 Long QT syndrome; F17.210 Nicotine dependence, cigarettes, uncomplicated; Z79.899 Other long term (current) drug therapy
CPT/HCPCS: 36415; 70450; 70496; 70498; 70551; 72141; 72146; 80048; 80053; 80061; 81003; 83036; 83605; 84484; 85025; 85610; 90471; 90686; 93005; 93306; 96360; 96361; 96372; 99284; 99406; A9270-GY; G0008; G0378; G8978-GP-CI; G8979-GP-CI; G8980-GP-CI; G8987-GO-CI; G8988-GO-CI; G8989-GO-CI; J1644; Q9967

== ENCOUNTER 2018-04-14 13:38 | Observation (INO) | payer MEDICARE, MEDICAID ==
[2018-04-14 14:42] LABS: ABS Basophils 0.1 10^3/ul (0-0.2); ABS Eosinophils 0.2 10^3/ul (0-0.6); ABS Lymphocytes 2.6 10^3/ul (1.0-4.8); ABS Monocytes 0.4 10^3/ul (0-0.8); ABS Neutrophils 2.7 10^3/ul (1.5-7.7); ABS Nucleated RBC 0 10^3/ul; Eosinophil % 2.8 % (0-6); Hematocrit 40 % (35-47); Hemoglobin 13.6 g/dl (12.0-16.0); Lymphocyte % 43.8 % (25-47); Mean Corpuscular HGB Conc 34 g/dl (31-36); Mean Corpuscular Hemoglobin 32 pg (27-31); Mean Corpuscular Volume 96 fL (80-97); Mean Platelet Volume 9.2 um3 (7.4-10.4); Nucleated Red Blood Cells % 0.3; Platelet Count 238 10^3/ul (150-450); Red Blood Count 4.23 10^6/ul (4.00-5.40); Red Cell Distribution Width 15 % (10.5-15)
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
[2018-04-14 14:54] LABS: EGFR Non-African American 42.2 (>60)
--- NOTE | 2018-04-14 15:01 | RAD ---
Indication: Generalized weakness with worsening over the past 2 weeks. History of cardiac disease and respiratory disease. Comparison: May 27, 2015 Technique: Upright AP 1441 hours Report: Based on correlation with the prior exam inspiration is suboptimal on the current study. Mild prominence of the interstitial markings in the lower lung zones without significant change. No focal pulmonary lesion, compelling alveolar consolidation, pleural effusion, pneumothorax. Upper normal heart size. Unremarkable central pulmonary vasculature and mediastinal contours. Healed RIGHT fifth rib fracture posteriorly. IMPRESSION: #. Based on correlation with the prior exam there is suggestion of chronic obstructive pulmonary disease. No acute cardiopulmonary process evident.
--- NOTE | 2018-04-14 15:29 | RAD ---
HISTORY: WEAKNESS COMPARISONS: August 21, 2016 TECHNIQUE: Multiple contiguous axial CT scans were obtained of the head without intravenous contrast. FINDINGS: HEMORRHAGE/INFARCT: There is no hemorrhage or acute infarct. MASSES/SHIFT: There is no mass or shift. EXTRA-AXIAL SPACES: There are no extra-axial fluid collections. SULCI AND VENTRICLES: The sulci and ventricles are normal in size and position for the patient's stated age. CEREBRUM: There are no focal parenchymal abnormalities. BRAINSTEM: There are no focal parenchymal abnormalities. CEREBELLUM: There are no focal parenchymal abnormalities. VESSELS: The vessels are grossly normal. PARANASAL SINUSES: The paranasal sinuses are clear. ORBITS: The orbits are unremarkable. BONES AND SOFT TISSUE: No bone or soft tissue abnormalities are noted. OTHER: None IMPRESSION: NO ACUTE INTRACRANIAL PATHOLOGY.
[2018-04-14 16:31] LABS: Urine Appearance Clear; Urine Blood Negative (Negative); Urine Color Yellow; Urine Ketones Trace (Negative); Urine Protein Negative (Negative); Urine Red Blood Cell Trace(0-2/hpf) (Absent); Urine Urobilinogen Negative (Negative); Urine White Blood Cell Trace(0-5/hpf) (Absent)
[2018-04-14] MEDS ORDERED: Ondansetron INJ* 2 MG/ML VIAL IV PRN (19:21)
[2018-04-14] MEDS ORDERED: Acetaminophen TAB* 325 MG PO PRN (19:21)
[2018-04-14] MEDS ORDERED: Al Hydrox/Mg Hydrox/Simet LIQ* 30 ML UDC PO PRN (19:21)
[2018-04-14] MEDS ORDERED: Albuterol 2.5 MG/3 ML NEB.SOL* (0.083%) INH PRN (19:21)
[2018-04-14] MEDS ORDERED: traMADol TAB* 50 MG PO PRN (19:28)
[2018-04-14] MEDS ORDERED: Amitriptyline TAB* 50 MG PO SCH (21:00)
[2018-04-14] MEDS ORDERED: Levothyroxine TAB* 75 MCG TAB PO ONE (21:15)
[2018-04-14] MEDS: NS 0.9% 1000 ML* 1,000 ML IV SCH (22:17)
[2018-04-14] MEDS: Heparin VIAL(*) 5000 UNITS/ML VIAL (FIVE THOUSAND) SUBCUT SCH (22:19)
--- NOTE | 2018-04-14 22:31 | HP ---
CC: Dr. Tha Lynch * ADMISSION HISTORY AND PHYSICAL: DATE OF ADMISSION: 04/14/18 PATIENT OF ADMITTING HOSPITALIST: Dr. Zulema Santiago.* (DICTATED BY KASEY CATHERINE) PRIMARY CARE PROVIDER: Dr. Tha Lynch. ATTENDING HOSPITALIST WHILE PATIENT HERE: Dr. Santiago. CHIEF COMPLAINT: Generalized weakness x2 weeks. HISTORY OF PRESENT ILLNESS: Mrs. Connolly is a 67-year-old female with past medical history significant for hyperlipidemia, herpes zoster, orthostatic hypotension, fibromyalgia, and GERD who presented to the emergency room earlier today with complaints of generalized weakness for the past 2 weeks. The patient could not provide me with any detailed or specific presentation to her weakness; however, she described it as not been able to carry on her normal daily activities. She denies any limb weakness or inability to walk; however, she does not have any stamina to walk or do anything all day. She also has been having prolonged times sleeping, she feels tired all the time, but denies any chest pain or shortness of breath. She also noticed that her mouth has been dry and her appetite has decreased. She also has a dry skin with multiple "itchy spots" mostly localized to her forearm and on the anterior aspect of her knees. She also has been under a lot of stress with her brother being sick and he earlier today. Given all her ongoing symptoms, she presented to the emergency room for evaluation. She had a similar episode almost 2 years ago with left-sided weakness for 2 weeks, had full neurological workup with no evidence of CVA or TIA. The patient was evaluated in the emergency room and had laboratory workup that revealed normal CBC and normal chemistry panel with the exception of markedly elevated TSH at 124. The patient denies any history of thyroid problems, any neck swelling or difficulty swallowing. She also had a brain CT that revealed no evidence of any intracranial hemorrhage. Given her ongoing symptoms and the findings of the severe hypothyroidism, we were asked to see the patient for further evaluation and to consider admission for observation overnight. PAST MEDICAL HISTORY: As mentioned above significant for hyperlipidemia, GERD, herpes zoster, orthostatic hypotension, fibromyalgia, history of tobacco abuse, peptic ulcer disease. Also looking back in her record, there is mention of history of hypothyroidism in the past; however, the patient denied any history of it. PAST SURGICAL HISTORY: Significant for laminectomy in 2010, appendectomy in 1962, and tubal ligation in 1970. HOME MEDICATIONS: Include: 1. Amitriptyline 150 mg p.o. q.h.s. 2. Prilosec 20 mg p.o. daily. 3. Tramadol 50 mg 1 tablet p.o. q.6 hours as needed for pain. 4. Lipitor 40 mg p.o. q.h.s. ALLERGIES: She has no known drug allergies. FAMILY HISTORY: Significant for coronary artery disease. Denies any family history of stroke, diabetes, or cancer. SOCIAL HISTORY: The patient is a current smoker approximately half a pack per day. She has been smoking for the past 30 years. She denies alcohol abuse or recreational drug use. She is disabled, lives at home with her son, Ruben, who is her surrogate decision maker and she wishes to be a full code. REVIEW OF SYSTEMS: See HPI, otherwise 14 points review of system were performed and they were essentially negative. PHYSICAL EXAMINATION GENERAL: She is a pleasant, slim, older female, appears tired but in no acute distress or discomfort at the time of admission. VITAL SIGNS: Reveal temperature of 97.6, pulse of 80, blood pressure 127/88, respiration of 16 with O2 sats of 96% on room air. HEENT: Head is normocephalic and atraumatic. Sclerae anicteric. PERRLA. EOMs intact. Oropharynx is dry. NECK: Supple. Trachea midline. No cervical adenopathy or thyromegaly. There are no thyroid nodules noted on palpation. No difficulty swallowing and no cervical lymphadenopathy. LUNGS: Clear to auscultation bilaterally. HEART: Regular rate and rhythm. Normal S1 and S2 without rubs, murmurs, or gallops. BACK: With normal curvature. No CVA tenderness. BREASTS: Exam deferred at this time. ABDOMEN: Soft, nontender, and nondistended. There are no hernias, masses, or hepatosplenomegaly. Bowel sounds were normoactive in all quadrants. SKIN: Dry and cool. There are areas of secondary abrasion noted to the forearms and both knees but no evidence of secondary infection. EXTREMITIES: Without cyanosis, clubbing, or edema. NEUROLOGIC: She is awake, alert, and oriented x3. Handgrip is equal bilaterally. Tongue is midline and sensation is intact throughout. RECTAL: Exam deferred at this. LABORATORY WORKUP: CBC with white count of 6000, hemoglobin 13.6, hematocrit of 40, and platelets of 238. Chemistry with sodium of 134, potassium 3.9, chloride 101, CO2 of 23, BUN of 16, and creatinine of 1.26. Her glucose is 90, magnesium 2.2. TSH is markedly elevated at 124. Troponin is negative and LFTs within normal limits. IMPRESSION: A 67-year-old female who has past medical history significant for hyperlipidemia, fibromyalgia, gastroesophageal reflux disease, and herpes zoster who presented to the emergency room with 2-week history of generalized weakness, found to have severe hypothyroidism, and will be admitted under hospitalist services under observation to telemetry unit for the following assessment and plan. 1. Hypothyroidism. The patient had no recollection of any history of hypothyroidism in the past. She does not have any difficulty swallowing and her physical exam showed no evidence of thyromegaly or thyroid nodules. We will go ahead and start her hormone replacement with 75 mcg of levothyroxine tonight and we will obtain an taping foreman consultation tomorrow for further assessment regarding her hypothyroidism. She appears to be comfortable at this time and agreed to admission plans. 2. Generalized weakness. I described to her that vast majority of symptoms and signs consistent with hypothyroidism including generalized weakness, dry skin, and increased fatigue. Her CBC is normal and she does not look like she is anemic. I will continue to do neurological checks every 4 hours while she is in the telemetry unit to rule out any possibility of transient ischemic attack or cerebrovascular accident; however, she does not have any neurological deficit suggesting any neurological issue at this time. She had an echocardiogram done a year ago that showed no significant findings. I will opt of to any MRI of her head pending tomorrow to see how she does overnight. 3. Elevated creatinine, appears to be at her baseline that was slightly elevated on her prior admission as well. She admits that she is not drinking a lot of water and I encouraged her to increase her p.o. intake and we will gently give her IV hydration as well. 4. Gastroesophageal reflux disease. We will continue her PPI coverage. 5. DVT prophylaxis. She is at high risk and will be covered with subcutaneous heparin. 6. Code status. She is a full code. TIME SPENT: Approximately 60 minutes were spent admitting this patient for which greater than 50% of this time on taking history and performing physical exam. I went on and discussed the case with my attending, who agreed to plan of care and we will follow her accordingly. KASEY CATHERINE [id number]/[facility] #: [id number] MTDD
[2018-04-15 05:43] LABS: ABS Basophils 0.1 10^3/ul (0-0.2); ABS Eosinophils 0.2 10^3/ul (0-0.6); ABS Lymphocytes 2.7 10^3/ul (1.0-4.8); ABS Monocytes 0.4 10^3/ul (0-0.8); ABS Neutrophils 2.3 10^3/ul (1.5-7.7); ABS Nucleated RBC 0 10^3/ul; Eosinophil % 3.2 % (0-6); Hematocrit 37 % (35-47); Hemoglobin 12.7 g/dl (12.0-16.0); Lymphocyte % 47.7 % (25-47); Mean Corpuscular HGB Conc 35 g/dl (31-36); Mean Corpuscular Hemoglobin 33 pg (27-31); Mean Corpuscular Volume 95 fL (80-97); Mean Platelet Volume 8.6 um3 (7.4-10.4); Nucleated Red Blood Cells % 0.2; Platelet Count 216 10^3/ul (150-450); Red Blood Count 3.88 10^6/ul (4.00-5.40); Red Cell Distribution Width 15 % (10.5-15); White Blood Count 5.6 10^3/ul (3.5-10.8)
[2018-04-15] MEDS: Heparin VIAL(*) 5000 UNITS/ML VIAL (FIVE THOUSAND) SUBCUT SCH (05:45)
[2018-04-15] MEDS: NS 0.9% 1000 ML* 1,000 ML IV SCH (05:50)
[2018-04-15] MEDS ORDERED: Omeprazole CAP* 20 MG PO SCH (07:30)
[2018-04-15 08:49] VITALS: BP 126/83
[2018-04-15] MEDS ORDERED: Levothyroxine TAB* 50 MCG TAB PO ONE (12:38)
[2018-04-15] MEDS ORDERED: Atorvastatin* 40 MG TAB PO SCH (17:00)
[2018-04-15] MEDS ORDERED: Levothyroxine TAB* 75 MCG TAB PO ONE (19:25)
--- NOTE | 2018-04-16 09:31 | DS ---
CC: Tha Lynch MD/NAOMI Humphries; Syed James MD* DISCHARGE SUMMARY: DATE OF ADMISSION: 04/14/18 DATE OF DISCHARGE: 04/15/18 PRIMARY CARE PROVIDERS: Tha Lynch MD/NAOMI Humphries. BODY TEAM MEMBER: Syed James MD. DISCHARGE DIAGNOSIS: Hypothyroidism. SECONDARY DIAGNOSES: 1. Hyperlipidemia. 2. Gastroesophageal reflux disease. 3. Herpes zoster. 4. Orthostatic hypotension. 5. Fibromyalgia. 6. History of tobacco abuse. 7. Peptic ulcer disease. MEDICATION LIST: 1. Amitriptyline 75 mg p.o. at bedtime. 2. Aspirin 81 mg p.o. daily. 3. Atorvastatin 40 mg p.o. daily. 4. Omeprazole 20 mg p.o. daily. 5. Tramadol 50 mg 1 to 2 tablets p.o. q.6 hours p.r.n. pain. New medication: Levothyroxine 50 mcg p.o. daily at 6:00 a.m. HOSPITAL COURSE: Mrs. Connolly is a 67-year-old lady with a past medical history as stated above that presented to the emergency room with complaints of generalized weakness for the past 2 weeks. The patient ran out of amitriptyline and was unable to sleep. For more details about her presentation , I refer you to her history and physical. The patient was found to have an elevated TSH of 124 with a free T4 less than 0.25. She was admitted for further observation overnight. The patient received 1 dose of levothyroxine and this morning she was feeling much improved, although her improvement is certainly not related to the hormone yet. Of note is the fact that the patient had TSH elevations in the past with a TSH of 136 in August 2016, but curiously in November the same year her TSH was down to 2.69 and later on 0.35. The patient denies having a prior diagnosis of hypothyroidism or taking any thyroid medications. She is medically stable to be discharged today. She will follow up with her primary care provider tomorrow , but arrangements will be made for her to see Endocrinology (Dr. Syed James as outpatient). DIET: Regular diet. ACTIVITIES: As tolerated. DISPOSITION: To home. STATUS WHILE IN THE HOSPITAL: Observation. Please keep in mind this is a summarized version of this patient's hospital stay. If you need more information, please feel free to call me at [phone] or please obtain the full medical records. TIME SPENT: Approximately 45 minutes were spent to complete this discharge. [id number]/[facility] #: [id number] ADRIANA
== END 2018-04-15 13:06 | disposition home or self-care (01) ==
LOC: ED 13:38 → MEDTELE 19:21
PROVIDERS: ADMIT Internal Medicine; ATTEND Internal Medicine
DX: E03.9 Hypothyroidism, unspecified (principal); E78.5 Hyperlipidemia, unspecified; K21.9 Gastro-esophageal reflux disease without esophagitis; B02.9 Zoster without complications; I95.1 Orthostatic hypotension; K27.9 Peptic ulcer, site unspecified, unspecified as acute or chronic, without hemorrhage or perforation; Z79.82 Long term (current) use of aspirin; R42 Dizziness and giddiness; M79.7 Fibromyalgia; R53.1 Weakness; R05 Cough; I10 Essential (primary) hypertension; F17.210 Nicotine dependence, cigarettes, uncomplicated
CPT/HCPCS: 36415; 70450; 71045; 80048; 80053; 81003; 81015; 83605; 83735; 84439; 84443; 84484; 85025; 87086; 90471; 90686; 93005; 96361; 96374; 99284; A9270-GY; G0008; G0378; J1644

== ENCOUNTER 2019-04-02 17:47 | Emergency (ER) | payer MEDICARE, MEDICAID ==
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
[2019-04-02 18:48] LABS: ABS Eosinophils 0.1 10^3/ul (0-0.6); ABS Monocytes 0.6 10^3/ul (0-0.8); ABS Neutrophils 3.5 10^3/ul (1.5-7.7); Eosinophil % 1.6 %; Hematocrit 40 % (35-47); Hemoglobin 13.4 g/dL (12.0-16.0); Lymphocyte % 31.7 %; Mean Corpuscular HGB Conc 34 g/dL (31-36); Mean Corpuscular Hemoglobin 30 pg (27-31); Mean Corpuscular Volume 88 fL (80-97); Platelet Count 308 10^3/uL (150-450); Red Blood Count 4.54 10^6 /uL (3.70-4.87); Red Cell Distribution Width 14 % (10-15); White Blood Count 6.3 10^3/uL (3.5-10.8)
[2019-04-02 19:05] LABS: Albumin 4.2 g/dL (3.2-5.2); Albumin/Globulin Ratio 1.2 (1-3); BUN/Creatinine Ratio 22.9 (8-20); C Reactive Protein 2.68 mg/L (<8.01); Calcium 9.8 mg/dL (8.6-10.3); EGFR African American 82.5 (>60); EGFR Non-African American 68.2 (>60); Globulin 3.5 g/dL (2-4); Magnesium 1.9 mg/dL (1.9-2.7); Potassium 4.2 mmol/L (3.5-5.0); Total Bilirubin 0.5 mg/dL (0.2-1.0); Total Protein 7.7 g/dL (6.4-8.9)
[2019-04-02] MEDS ORDERED: NS 0.9% 1000 ML** 1,000 ML IV ONE (19:35)
[2019-04-02] MEDS ORDERED: Ondansetron INJ* 2 MG/ML VIAL IV ONE (19:35)
[2019-04-02 20:26] LABS: INR 0.99 (0.82-1.09)
[2019-04-02 21:26] LABS: Urine Appearance Cloudy; Urine Bacteria Absent (Absent); Urine Bilirubin Negative (Negative); Urine Blood Negative (Negative); Urine Color Yellow; Urine Glucose Negative (Negative); Urine Ketones Trace (Negative); Urine Nitrite Negative (Negative); Urine Protein Negative (Negative); Urine Red Blood Cell Trace(0-2/hpf) (Absent); Urine Specific Gravity 1.019 (1.010-1.030); Urine Squamous Epithelial Cell Present (Absent); Urine Urobilinogen Negative (Negative); Urine White Blood Cell 1+(6-10/hpf) (Absent)
[2019-04-02 21:54] VITALS: BP 139/93
[2019-04-02] MEDS ORDERED: Cephalexin CAP* 500 MG PO ONE (22:01)
== END 2019-04-02 22:16 | disposition home or self-care (01) ==
LOC: ED 17:47
DX: N39.0 Urinary tract infection, site not specified (principal); F50.89 Other specified eating disorder; E03.9 Hypothyroidism, unspecified; E78.00 Pure hypercholesterolemia, unspecified; I10 Essential (primary) hypertension; Z86.74 Personal history of sudden cardiac arrest; Z98.51 Tubal ligation status; F17.210 Nicotine dependence, cigarettes, uncomplicated; Z79.899 Other long term (current) drug therapy
CPT/HCPCS: 36415; 70450; 71045; 80053; 81003; 81015; 83605; 83690; 83735; 84484; 85025; 85610; 86140; 87040; 87086; 93005; 96361; 96374; 99283; A9270-GY; J2405

== ENCOUNTER 2021-04-18 15:52 | Inpatient (IN) ==
[2021-04-18] MEDS ORDERED: Lactated Ringers 1000 ml BAG 1,000 ML IV ONE (16:25)
[2021-04-18 17:14] LABS: ABS Lymphocytes 0.8 10^3/ul (1.0-4.8); ABS Monocytes 0.5 10^3/ul (0-0.8); ABS Neutrophils 8.7 10^3/ul (1.5-7.7); Albumin 3.5 g/dL (3.2-5.2); Calcium 9.5 mg/dL (8.6-10.3); Eosinophil % 0.3 %; Globulin 3.5 g/dL (2-4); Hematocrit 37 % (35-47); Hemoglobin 12.5 g/dL (12.0-16.0); Lymphocyte % 8.5 %; Mean Corpuscular HGB Conc 34 g/dL (31-36); Mean Corpuscular Hemoglobin 31 pg (27-31); Mean Corpuscular Volume 92 fL (80-97); Mean Platelet Volume 9.6 fL (7.4-10.4); Platelet Count 257 10^3/uL (150-450); Red Blood Count 4.06 10^6 /uL (3.70-4.87); Red Cell Distribution Width 16 % (10-15); Total Bilirubin 0.8 mg/dL (0.2-1.0)
[2021-04-18] MEDS ORDERED: Iodixanol (CONTRAST) 320 MG/ML 100 ML SDV IV ONE (17:51)
[2021-04-18 18:20] LABS: Potassium 4.1 mmol/L (3.5-5.0)
[2021-04-18 19:26] LABS: Rapid COVID-19 Molecular Undetected (Undetected)
[2021-04-18] MEDS ORDERED: Ondansetron 4 mg VIAL 2 MG/ML 2 ml VIAL IV PRN (19:38)
[2021-04-18] MEDS ORDERED: NS 0.9% 1000 ml BAG 1,000 ML IV SCH (19:45)
[2021-04-18 19:56] LABS: HDL Cholesterol 41.8 mg/dL; Magnesium 1.9 mg/dL (1.9-2.7)
[2021-04-18 20:20] LABS: TSH Ultra Thyroid Stim Horm 7.29 mcIU/mL (0.34-5.60)
[2021-04-18] MEDS ORDERED: Acetaminophen IV 1 GM/100ML 100 ML IV ONE (22:55)
[2021-04-18] MEDS: Enoxaparin 40 MG/0.4 ML SYR SUBCUT SCH (23:05)
[2021-04-19 01:12] LABS: Free T4 1.01 ng/dL (0.61-1.12)
[2021-04-19 04:49] LABS: ABS Eosinophils 0.1 10^3/ul (0-0.6); ABS Lymphocytes 2.3 10^3/ul (1.0-4.8); ABS Monocytes 0.6 10^3/ul (0-0.8); Eosinophil % 1.8 %; Hematocrit 31 % (35-47); Hemoglobin 10.2 g/dL (12.0-16.0); Lymphocyte % 28.6 %; Mean Corpuscular HGB Conc 33 g/dL (31-36); Mean Corpuscular Hemoglobin 31 pg (27-31); Mean Corpuscular Volume 92 fL (80-97); Mean Platelet Volume 9.4 fL (7.4-10.4); Platelet Count 244 10^3/uL (150-450); Red Blood Count 3.35 10^6 /uL (3.70-4.87); Red Cell Distribution Width 16 % (10-15)
[2021-04-19 05:04] LABS: Albumin 2.9 g/dL (3.2-5.2); Calcium 8.7 mg/dL (8.6-10.3); Direct Bilirubin 0.3 mg/dL (0.03-0.18); Indirect Bilirubin 0.5 mg/dL (0.3-1.0); Potassium 3.8 mmol/L (3.5-5.0); Total Bilirubin 0.8 mg/dL (0.2-1.0); Total Protein 5.9 g/dL (6.4-8.9)
[2021-04-19] MEDS: Cyanocobalamin INJ 1,000 MCG/ML VIAL 1 ML VIAL IM SCH (09:21)
[2021-04-19] MEDS: Enoxaparin 40 MG/0.4 ML SYR SUBCUT SCH (19:59)
[2021-04-20 06:43] LABS: ABS Basophils 0.1 10^3/ul (0-0.2); ABS Eosinophils 0.1 10^3/ul (0-0.6); ABS Lymphocytes 1.7 10^3/ul (1.0-4.8); ABS Monocytes 0.6 10^3/ul (0-0.8); ABS Neutrophils 5.5 10^3/ul (1.5-7.7); Eosinophil % 1.8 %; Hematocrit 32 % (35-47); Hemoglobin 10.9 g/dL (12.0-16.0); Lymphocyte % 21.1 %; Mean Corpuscular HGB Conc 34 g/dL (31-36); Mean Corpuscular Hemoglobin 31 pg (27-31); Mean Corpuscular Volume 91 fL (80-97); Mean Platelet Volume 9.3 fL (7.4-10.4); Platelet Count 230 10^3/uL (150-450); Red Cell Distribution Width 16 % (10-15)
[2021-04-20 06:53] LABS: INR 1.13 (0.86-1.15)
[2021-04-20 07:01] LABS: Potassium 3.8 mmol/L (3.5-5.0); Total Protein 6.2 g/dL (6.4-8.9)
[2021-04-20 07:02] LABS: Albumin/Globulin Ratio 0.9 (1-3); Globulin 3.2 g/dL (2-4); Total Bilirubin 0.9 mg/dL (0.2-1.0)
[2021-04-20] MEDS: Cyanocobalamin INJ 1,000 MCG/ML VIAL 1 ML VIAL IM SCH (11:18)
[2021-04-20] MEDS: Enoxaparin 40 MG/0.4 ML SYR SUBCUT SCH (19:39)
[2021-04-21 06:05] LABS: ABS Eosinophils 0.2 10^3/ul (0-0.6); ABS Monocytes 0.5 10^3/ul (0-0.8); ABS Neutrophils 4.4 10^3/ul (1.5-7.7); Eosinophil % 2.8 %; Hematocrit 30 % (35-47); Hemoglobin 10.2 g/dL (12.0-16.0); Lymphocyte % 27.7 %; Mean Corpuscular HGB Conc 34 g/dL (31-36); Mean Corpuscular Hemoglobin 31 pg (27-31); Mean Corpuscular Volume 92 fL (80-97); Platelet Count 223 10^3/uL (150-450); Red Blood Count 3.28 10^6 /uL (3.70-4.87); Red Cell Distribution Width 16 % (10-15); White Blood Count 7.1 10^3/uL (3.5-10.8)
[2021-04-21 06:11] LABS: INR 1.11 (0.86-1.15)
[2021-04-21 06:18] LABS: Calcium 8.8 mg/dL (8.6-10.3); Potassium 3.9 mmol/L (3.5-5.0)
[2021-04-21 14:17] LABS: Urine Benzodiazepine Screen None Detected (None Detect); Urine Cannabinoids Screen None Detected (None Detect); Urine Opiates Screen None Detected (None Detect)
[2021-04-21] MEDS: Cyanocobalamin INJ 1,000 MCG/ML VIAL 1 ML VIAL IM SCH (16:00)
[2021-04-21] MEDS: Enoxaparin 40 MG/0.4 ML SYR SUBCUT SCH (20:40)
[2021-04-22 09:58] LABS: ABS Eosinophils 0.2 10^3/ul (0-0.6); ABS Lymphocytes 1.7 10^3/ul (1.0-4.8); ABS Monocytes 0.5 10^3/ul (0-0.8); ABS Neutrophils 3.8 10^3/ul (1.5-7.7); Eosinophil % 3.2 %; Hematocrit 30 % (35-47); Hemoglobin 10.3 g/dL (12.0-16.0); Lymphocyte % 27.9 %; Mean Corpuscular HGB Conc 34 g/dL (31-36); Mean Corpuscular Hemoglobin 31 pg (27-31); Mean Corpuscular Volume 92 fL (80-97); Mean Platelet Volume 8.6 fL (7.4-10.4); Platelet Count 234 10^3/uL (150-450); Red Blood Count 3.32 10^6 /uL (3.70-4.87); Red Cell Distribution Width 16 % (10-15); White Blood Count 6.3 10^3/uL (3.5-10.8)
[2021-04-22 10:13] LABS: Calcium 8.8 mg/dL (8.6-10.3); Potassium 4.2 mmol/L (3.5-5.0)
[2021-04-22] MEDS ORDERED: Ketamine HCL 50 mg/ml 10 ml VIAL (500 MG) ONE (14:05)
[2021-04-22] MEDS ORDERED: fentaNYL 100 mcg/2 ml 50 MCG/ML VIAL ONE (14:05)
[2021-04-22] MEDS ORDERED: Propofol 10 MG/ML 20 ML BTL ONE (14:05)
[2021-04-22] MEDS ORDERED: cefTRIAXone 2 GM ADDV.VIAL ONE (14:24)
[2021-04-22] MEDS ORDERED: ceFAZolin 1 GM ADVAN 1 GM ADDV.VIAL IVPB ONE (14:27)
[2021-04-22] MEDS ORDERED: Phenylephrine IV 10 MG/ML 1 ml VIAL ONE (15:16)
[2021-04-22] MEDS ORDERED: Phenylephrine 40 mcg/mL 10mL (400mcg) SYRINGE ONE (17:04)
[2021-04-22] MEDS ORDERED: Vancomycin 1,000 MG VIAL ONE (17:49)
[2021-04-22 21:27] LABS: Anaplasma phagocytophilum Negative (Negative); B. miyamotoi PCR, B Negative (Negative); Babesia divergens/MO-1 Negative (Negative); Babesia ducani Negative (Negative); Ehrlichia chaffeensis Negative (Negative); Ehrlichia ewingii/canis Negative (Negative); Ehrlichia muris eauclairensis Negative (Negative)
[2021-04-23] MEDS: ceFAZolin 1 GM X 3 DOSES POST-OP Q8H (AddVan) IVPB SCH ×3 (00:32→16:45)
[2021-04-23 06:54] LABS: INR 1.09 (0.86-1.15)
[2021-04-23 07:04] LABS: ABS Monocytes 0.7 10^3/ul (0-0.8); ABS Neutrophils 7.4 10^3/ul (1.5-7.7); Eosinophil % 0.2 %; Hematocrit 27 % (35-47); Hemoglobin 9.3 g/dL (12.0-16.0); Lymphocyte % 10.8 %; Mean Corpuscular HGB Conc 34 g/dL (31-36); Mean Corpuscular Hemoglobin 32 pg (27-31); Mean Corpuscular Volume 93 fL (80-97); Mean Platelet Volume 9.3 fL (7.4-10.4); Platelet Count 224 10^3/uL (150-450); Red Blood Count 2.92 10^6 /uL (3.70-4.87); Red Cell Distribution Width 16 % (10-15); White Blood Count 9.1 10^3/uL (3.5-10.8)
[2021-04-23 07:14] LABS: Calcium 8.4 mg/dL (8.6-10.3); Potassium 3.4 mmol/L (3.5-5.0)
[2021-04-23 08:51] LABS: Magnesium 1.8 mg/dL (1.9-2.7)
[2021-04-23] MEDS: KCL 20 MEQ/100 ML IVPREMIX 20 MEQ/100 ML BAG IV SCH ×3 (09:31→15:12)
[2021-04-23] MEDS: Enoxaparin 40 MG/0.4 ML SYR SUBCUT SCH (11:36)
[2021-04-23] MEDS ORDERED: Magnesium Sulfate 2 gm BAG 2 GM/50 ML BAG IVPB ONE (15:23)
[2021-04-23 18:06] LABS: Urine Appearance Clear; Urine Bilirubin Negative (Negative); Urine Blood Negative (Negative); Urine Color Yellow; Urine Glucose Negative (Negative); Urine Ketones Negative (Negative); Urine Nitrite Negative (Negative); Urine Protein Negative (Negative); Urine Urobilinogen Positive (Negative)
[2021-04-23 18:13] LABS: Urine Bacteria Absent (Absent); Urine Red Blood Cell Trace(0-2/hpf) (Absent); Urine Squamous Epithelial Cell Present (Absent); Urine White Blood Cell Trace(0-5/hpf) (Absent)
[2021-04-24 07:28] LABS: ABS Eosinophils 0.2 10^3/ul (0-0.6); ABS Lymphocytes 1.3 10^3/ul (1.0-4.8); ABS Monocytes 0.7 10^3/ul (0-0.8); ABS Neutrophils 4.9 10^3/ul (1.5-7.7); Eosinophil % 3.1 %; Hematocrit 25 % (35-47); Hemoglobin 8.4 g/dL (12.0-16.0); Lymphocyte % 18.3 %; Mean Corpuscular HGB Conc 34 g/dL (31-36); Mean Corpuscular Hemoglobin 31 pg (27-31); Mean Corpuscular Volume 92 fL (80-97); Mean Platelet Volume 8.9 fL (7.4-10.4); Platelet Count 213 10^3/uL (150-450); Red Blood Count 2.67 10^6 /uL (3.70-4.87); Red Cell Distribution Width 16 % (10-15)
[2021-04-24 07:32] LABS: INR 1.19 (0.86-1.15)
[2021-04-24 07:44] LABS: Calcium 8.4 mg/dL (8.6-10.3)
[2021-04-24 08:06] LABS: Potassium 4.4 mmol/L (3.5-5.0)
[2021-04-24] MEDS: Enoxaparin 40 MG/0.4 ML SYR SUBCUT SCH (12:41)
[2021-04-25 07:44] LABS: ABS Basophils 0.1 10^3/ul (0-0.2); ABS Eosinophils 0.2 10^3/ul (0-0.6); ABS Lymphocytes 1.6 10^3/ul (1.0-4.8); ABS Monocytes 0.5 10^3/ul (0-0.8); ABS Neutrophils 4.5 10^3/ul (1.5-7.7); Eosinophil % 3.4 %; Hematocrit 25 % (35-47); Hemoglobin 8.4 g/dL (12.0-16.0); Lymphocyte % 22.7 %; Mean Corpuscular HGB Conc 34 g/dL (31-36); Mean Corpuscular Hemoglobin 31 pg (27-31); Mean Corpuscular Volume 93 fL (80-97); Mean Platelet Volume 8.5 fL (7.4-10.4); Nucleated Red Blood Cells % 0.1; Platelet Count 222 10^3/uL (150-450); Red Cell Distribution Width 16 % (10-15)
[2021-04-25 08:03] LABS: Calcium 8.5 mg/dL (8.6-10.3); Potassium 3.9 mmol/L (3.5-5.0)
[2021-04-25] MEDS ORDERED: Polyethylene Glycol 3350 17 GM PACKET PO PRN (10:37)
[2021-04-25] MEDS ORDERED: Senna TAB 8.6 mg TAB PO PRN (10:37)
[2021-04-25] MEDS ORDERED: Magnesium Hydroxide LIQ 30 ML UDC PO PRN (10:37)
[2021-04-25] MEDS: Enoxaparin 40 MG/0.4 ML SYR SUBCUT SCH (11:19)
[2021-04-25] MEDS: Magnesium Hydroxide LIQ 30 ML UDC PO SCH (21:18)
[2021-04-26] MEDS: Enoxaparin 40 MG/0.4 ML SYR SUBCUT SCH (10:32)
[2021-04-26] MEDS: Magnesium Hydroxide LIQ 30 ML UDC PO SCH (10:33)
[2021-04-27 09:08] LABS: CO2 Carbon Dioxide 21 mmol/L (22-32); Calcium 8.4 mg/dL (8.6-10.3); Chloride 104 mmol/L (101-111); Sodium 132 mmol/L (135-145)
[2021-04-27 09:14] LABS: Blood Urea Nitrogen 12 mg/dL (6-24); Glucose 93 mg/dL (70-100)
[2021-04-27 10:19] LABS: Anion Gap 7 mmol/L (2-11)
[2021-04-27 10:53] LABS: ABS Eosinophils 0.3 10^3/ul (0-0.6); ABS Lymphocytes 1.6 10^3/ul (1.0-4.8); ABS Monocytes 0.4 10^3/ul (0-0.8); Eosinophil % 4.8 %; Hematocrit 25 % (35-47); Lymphocyte % 30.4 %; Mean Corpuscular HGB Conc 33 g/dL (31-36); Mean Corpuscular Hemoglobin 30 pg (27-31); Mean Corpuscular Volume 92 fL (80-97); Mean Platelet Volume 7.9 fL (7.4-10.4); Nucleated Red Blood Cells % 0.1; Platelet Count 303 10^3/uL (150-450); Red Blood Count 2.67 10^6 /uL (3.70-4.87); Red Cell Distribution Width 16 % (10-15); White Blood Count 5.3 10^3/uL (3.5-10.8)
[2021-04-27] MEDS: Enoxaparin 40 MG/0.4 ML SYR SUBCUT SCH (12:52)
[2021-04-28 07:10] LABS: Hematocrit 27 % (35-47); Hemoglobin 9.2 g/dL (12.0-16.0); Mean Corpuscular HGB Conc 34 g/dL (31-36); Mean Corpuscular Hemoglobin 31 pg (27-31); Mean Corpuscular Volume 92 fL (80-97); Mean Platelet Volume 7.5 fL (7.4-10.4); Platelet Count 335 10^3/uL (150-450); Red Blood Count 2.94 10^6 /uL (3.70-4.87); Red Cell Distribution Width 16 % (10-15); White Blood Count 5.5 10^3/uL (3.5-10.8)
[2021-04-28 07:24] LABS: Magnesium 1.9 mg/dL (1.9-2.7); Potassium 3.8 mmol/L (3.5-5.0)
[2021-04-28 08:17] LABS: ABS Eosinophils 0.2 10^3/ul (0-0.6); ABS Lymphocytes 1.3 10^3/ul (1.0-4.8); ABS Monocytes 0.4 10^3/ul (0-0.8); ABS Neutrophils 3.5 10^3/ul (1.5-7.7); Lymphocyte % 24.5 %
[2021-04-28] MEDS: Enoxaparin 40 MG/0.4 ML SYR SUBCUT SCH (14:00)
[2021-04-29] MEDS: Enoxaparin 40 MG/0.4 ML SYR SUBCUT SCH (14:36)
[2021-04-30] MEDS: Enoxaparin 40 MG/0.4 ML SYR SUBCUT SCH (10:23)
[2021-05-01 10:01] VITALS: BP 120/65
[2021-05-01 10:30] LABS: Rapid COVID-19 Molecular Undetected (Undetected)
[2021-05-01] MEDS: Enoxaparin 40 MG/0.4 ML SYR SUBCUT SCH ×2 (10:54→11:00)
== END 2021-05-01 14:37 | DRG 481 ==
LOC: MEDTELE 15:52 → ED 15:52 → SUATTDRO 19:39 → MEDTELE 22:08 → SUATTDRO 04-19 16:39 → SSU 04-22 20:34
PROVIDERS: ADMIT Internal Medicine; ATTEND Internal Medicine

== ENCOUNTER 2021-08-25 05:13 | Observation (INO) ==
[2021-08-25 06:54] LABS: Albumin 3.5 g/dL (3.2-5.2); Albumin/Globulin Ratio 0.9 (1-3); C Reactive Protein 309.62 mg/L (<8.01); Calcium 9.1 mg/dL (8.6-10.3); Globulin 3.8 g/dL (2-4); Potassium 3.6 mmol/L (3.5-5.0); Total Bilirubin 0.7 mg/dL (0.2-1.0); Total Protein 7.3 g/dL (6.4-8.9); eGFR CKD-EPI 55.2 (>60)
[2021-08-25 06:56] LABS: Troponin I 0.01 ng/mL (<0.03)
[2021-08-25 07:03] LABS: Activated Partial Thrombo Time 26.8 seconds (26.0-38.0); INR 1.11 (0.86-1.15)
[2021-08-25 07:17] LABS: ABS Eosinophils 0.1 10^3/ul (0-0.6); ABS Lymphocytes 0.5 10^3/ul (1.0-4.8); ABS Neutrophils 5.9 10^3/ul (1.5-7.7); Hematocrit 32 % (35-47); Hemoglobin 10.8 g/dL (12.0-16.0); Lymphocyte % 6.8 %; Mean Corpuscular HGB Conc 33 g/dL (31-36); Mean Corpuscular Hemoglobin 29 pg (27-31); Mean Corpuscular Volume 87 fL (80-97); Mean Platelet Volume 8.9 fL (7.4-10.4); Platelet Count 242 10^3/uL (150-450); Red Blood Count 3.71 10^6 /uL (3.70-4.87); Red Cell Distribution Width 16 % (10-15); White Blood Count 7.6 10^3/uL (3.5-10.8)
[2021-08-25] MEDS ORDERED: NS 0.9% 1000 ml BAG 1,000 ML IV ONE (07:39)
[2021-08-25] MEDS ORDERED: Iodixanol (CONTRAST) 320 MG/ML 100 ML SDV IV ONE (08:17)
[2021-08-25 08:50] LABS: Urine Appearance Turbid; Urine Bilirubin Negative (Negative); Urine Blood 1+ (Negative); Urine Color Amber; Urine Glucose Negative (Negative); Urine Ketones Negative (Negative); Urine Nitrite Positive (Negative); Urine Protein 2+(100 mg/dL) (Negative); Urine Specific Gravity 1.017 (1.002-1.030); Urine Urobilinogen Negative (Negative)
[2021-08-25 09:02] LABS: Urine Bacteria 1+ (Absent); Urine Red Blood Cell 2+(6-10/hpf) (Absent); Urine White Blood Cell 3+(>20/hpf) (Absent)
[2021-08-25] MEDS ORDERED: cefTRIAXone 1 gm/50 mL NS BAG 1 GM/50 ML BAG IV ONE (09:03)
[2021-08-25] MEDS: Enoxaparin 40 MG/0.4 ML SYR SUBCUT SCH (10:29)
[2021-08-26 06:23] LABS: Hematocrit 30 % (35-47); Hemoglobin 9.9 g/dL (12.0-16.0); Mean Corpuscular HGB Conc 33 g/dL (31-36); Mean Corpuscular Hemoglobin 28 pg (27-31); Mean Corpuscular Volume 87 fL (80-97); Mean Platelet Volume 8.7 fL (7.4-10.4); Platelet Count 255 10^3/uL (150-450); Red Blood Count 3.49 10^6 /uL (3.70-4.87); Red Cell Distribution Width 16 % (10-15)
[2021-08-26 06:40] LABS: Anion Gap 9 mmol/L (2-11); Blood Urea Nitrogen 20 mg/dL (6-24); C Reactive Protein 287.94 mg/L (<8.01); CO2 Carbon Dioxide 22 mmol/L (22-32); Calcium 8.9 mg/dL (8.6-10.3); Chloride 103 mmol/L (101-111); Glucose 113 mg/dL (70-100); Potassium 3.5 mmol/L (3.5-5.0); Sodium 134 mmol/L (135-145); eGFR CKD-EPI 62.1 (>60)
[2021-08-26 06:53] LABS: ABS Eosinophils 0.1 10^3/ul (0-0.6); ABS Lymphocytes 1.2 10^3/ul (1.0-4.8); ABS Monocytes 1.8 10^3/ul (0-0.8); ABS Neutrophils 7.9 10^3/ul (1.5-7.7); Eosinophil % 0.6 %; Lymphocyte % 11.3 %; RBC Morphology Normal (Normal)
[2021-08-26 07:07] LABS: Vitamin B12 403 pg/mL (180-914)
[2021-08-26] MEDS: Enoxaparin 40 MG/0.4 ML SYR SUBCUT SCH (09:19)
[2021-08-26] MEDS: Calcium/Vitamin D TAB 250/125 TAB PO SCH (09:19)
[2021-08-26] MEDS: cefTRIAXone 1 gm/50 mL NS BAG 1 GM/50 ML BAG IVPB SCH (09:19)
[2021-08-26 11:39] LABS: Total Iron Binding Capacity 356 mcg/dL (250-450); Transferrin 254 mg/dL (203-362)
[2021-08-26 11:56] LABS: % Iron Saturation 6 % (15-55); Iron < 20 ug/dL (50-212); Unsaturated Iron Binding 336 ug/dL
[2021-08-26 12:03] LABS: Ferritin 179.3 ng/mL (11-307)
[2021-08-27] MEDS: Enoxaparin 40 MG/0.4 ML SYR SUBCUT SCH (09:42)
[2021-08-27] MEDS: Calcium/Vitamin D TAB 250/125 TAB PO SCH (09:42)
[2021-08-27] MEDS: cefTRIAXone 1 gm/50 mL NS BAG 1 GM/50 ML BAG IVPB SCH (09:45)
[2021-08-27 15:46] VITALS: BP 124/56
== END 2021-08-27 18:15 | disposition home or self-care (01) ==
LOC: ED 05:13 → EDHOLD 09:53 → INTOOBSV 09:53 → EDHOLD 12:13 → MEDTELE 14:05
PROVIDERS: ADMIT Internal Medicine; ATTEND Internal Medicine